=== PATIENT | female | born 1955 | race Caucasian/White ===

== ENCOUNTER 2017-09-25 15:26 | Inpatient (IN) ==
--- NOTE | 2017-09-25 17:35 | Emergency Department Note ---
Disposition Clinical Impression: Effusion, right knee Fever Qualifiers: Fever type: unspecified Qualified Code(s): R50.9 - Fever, unspecified Disposition: Still a Patient Condition: Undetermined Referrals: Camilla Ren MD [Primary Care Provider] - Forms: ED Satisfaction Letter Extremity Problem HPI - General Chief complaint: ED Extremity Injury, Lower Stated complaint: R knee infection Time Seen by Provider: 09/25/17 17:09 Source: patient Mode of arrival: private vehicle Limitations: no limitations Nursing Notes Reviewed: Yes Vital Signs Reviewed: Yes - History of Present Illness Pt Subjective Complaint: joint swelling, joint paint Onset (ago): day(s) (since this morning) Consistency: constant Injury Location: right Pain Scale: 9 Quality: aching, crushing, sharp Radiation: none Improves with: immobilization Worsens with: range of motion, weight bearing, walking, palpation Associated symptoms: Reports: fever, change in appearance, swelling, redness ( "Earlier today, redness is gone now") Context: other (TKR 2012) - Related Data Allergies Allergy/AdvReac Type Severity Reaction Status Date / Time bacitracin Allergy Blister Verified 09/25/17 16:17 [From Neosporin ([id number])] Neomycin Allergy Blister Verified 09/25/17 16:17 [From Neosporin ([id number])] polymyxin B Allergy Blister Verified 09/25/17 16:17 [From Neosporin ([id number])] All systems ED: reviewed and negative except as stated. Review of Systems: As Per HPI Constitutional: Reports: as per HPI, fever (102, just prior to arrival), chills. Denies: weakness, weight change, night sweats Eyes: Denies: eye pain, eye discharge ENT ED: Reports: congestion ("Always have some sinus congestion"). Denies: ear pain, throat pain, dysphagia Cardiovascular: Denies: chest pain Respiratory: Denies: cough, dyspnea, wheezes, sputum production Gastrointestinal: Reports: nausea. Denies: abdominal pain, vomiting, diarrhea, constipation Genitourinary: Denies: urgency, dysuria, frequency, hematuria, discharge Musculoskeletal: Reports: back pain ("A little yesterday, better after sleeping on the floor last night"), joint swelling (Right knee), arthralgia (Right knee) . Denies: neck pain Integumentary: Denies: rash, lesions Neurological: Reports: headache (Began this afternoon, frontal, radiating to the top of the head. Gradual onset. Nothing makes it better or worse. Different from previous headaches.). Denies: weakness, numbness, paresthesias, confusion, vertigo Hematological/Lymphatic: Denies: easy bleeding, easy bruising, lymphadenopathy Allergic/Immunologic: Denies: facial swelling, itchy eyes Past Medical History - Past Medical History Attestation: Yes The following information was validated with the patient. Source: patient Medical history: Reports: arthritis, hypertension Surgical history: Reports: knee replacement (Right) Psychiatric history: Reports: no psych history - Social History Smoking Status: Never smoker Smokeless Tobacco Status: No Alcohol use: Reports: none Drug use: Reports: none Physical Exam - General Limitations: no limitations General appearance: alert, in no apparent distress - Head Head exam: atraumatic, normocephalic, normal inspection - Eye Eye exam: Present: normal appearance, PERRL. Absent: scleral icterus, conjunctival injection, periorbital swelling, periorbital tenderness - ENT ENT exam: mucous membranes moist - Neck Neck exam: Present: normal inspection, full ROM, trachea midline. Absent: tenderness, meningismus, lymphadenopathy - Chest Chest inspection: Present: normal inspection - Respiratory Respiratory exam: Present: normal lung sounds bilaterally. Absent: respiratory distress, wheezes, stridor, accessory muscle use, prolonged expiratory phase - Cardiovascular Cardiovascular exam: Present: regular rate, normal rhythm, normal heart sounds - Extremities Exam Extremities exam: Present: full ROM, tenderness, normal capillary refill, joint swelling. Absent: pedal edema, calf tenderness - Expanded Lower Extremity Exam Hip/Pelvis exam: Present: normal inspection, full ROM Upper leg exam: Present: normal inspection Knee exam: Present: full ROM, tenderness (Right anterior), swelling (Mild, right anterior), knee extension intact. Absent: abrasion, ecchymosis, deformity , crepitus, dislocation, erythema Lower leg exam: Present: normal inspection. Absent: tenderness, swelling, erythema, Homans' sign Ankle exam: Present: normal inspection, full ROM. Absent: tenderness, swelling Foot/toe exam: Present: normal inspection, full ROM. Absent: tenderness, swelling Neurovascular/Tendon exam: Present: normal capillary refill, normal fine/light touch. Absent: pulse deficit, motor deficit, sensory deficit, tendon deficit, extremity cold to touch, pallor, foot drop, significant pain with passive ROM of distal joint Gait: observed and limited by pain, antalgic - Back Exam Back exam: Present: normal inspection, full ROM. Absent: CVA tenderness (R), CVA tenderness (L) - Neurological Exam Neurological exam: Present: alert, oriented X3, CN II-XII intact, normal gait - Psychiatric Psychiatric exam: Present: normal affect, normal mood - Skin Skin exam: Present: warm, dry, intact, normal color Course Course Narrative: Impression presents from home for evaluation of right knee pain and swelling. She woke up with the pain and describes it as starting suddenly before she got up. She noticed swelling and some redness. The redness is gone now. She also has had a fever and a headache which began this afternoon. The headache was gradual in onset, but is different than previous headaches. She is concerned that she may have an infection of some type in her knee. She had a total knee replacement 2012 and has had little to no complication with it since then. Her had an unfortunate experience with an infection in his knee joint, and this is what has caused her concerns about her knee. On exam, she has a low- grade fever and is tachycardic. She reports that her fever was higher before she left her house. She took Tylenol at home. I see no obvious source of infection on initial examination. She has full range of motion of her knee. It is mildly edematous, mildly tender and warm. However, there is no erythema and she does not appear to be in any more discomfort with range of motion of the knee, than at rest. X-ray and labs have been ordered along with Motrin. She is in the fast-track area which is not amenable to IV fluids. As it is shift change, care of this patient is being transferred to the oncoming provider, Kobi Moulton CNP, after discussion of the case. Vital Signs Temperature 99.8 F H 09/25/17 16:08 Pulse Rate 90 09/25/17 16:08 Respiratory Rate 16 09/25/17 16:08 Blood Pressure 132/75 09/25/17 16:08 O2 Sat by Pulse Oximetry 98 09/25/17 16:08 Temperature 99.8 F H 09/25/17 16:08 Pulse Rate 90 09/25/17 16:08 Respiratory Rate 16 09/25/17 16:08 Blood Pressure 132/75 09/25/17 16:08 O2 Sat by Pulse Oximetry 98 09/25/17 16:08 Oxygen Delivery Oxygen Delivery Room Air
[2017-09-25] MEDS ORDERED: Ibuprofen 600 MG TABLET PO ONE (17:37)
[2017-09-25 18:07] LABS: Basophils % 0.2 %; Monocytes % 8.1 %
[2017-09-25 18:08] LABS: Basophils # 0.1 K/mcL (0.0-0.2); Hemoglobin 12.9 g/dL (11.5-15.4); Immature Granulocytes % 1.1 % (0-4); Lymphocytes # 1.4 K/mcL (0.6-4.6); Lymphocytes % 4.7 %; Mean Corpuscular HGB Conc 32.3 g/dL (31.6-35.5); Mean Corpuscular Volume 77.7 fL (83.0-100.0); Mean Platelet Volume 10.6 fL (9.4-12.4); Monocytes # 2.4 K/mcL (0.0-1.3); Neutrophils # 25.1 K/mcL (1.6-8.9); Platelet Count 313 K/mcL (140-400); Red Blood Count 5.15 M/mcL (3.82-4.97); Red Cell Distribution Width 15.9 % (11.5-14.5); Segmented Neutrophils % 85.9 %
[2017-09-25 18:27] LABS: BUN/Creatinine Ratio 21 (6-26); Blood Urea Nitrogen 15 mg/dL (8-23); Calcium 9.3 mg/dL (8.6-10.3); Carbon Dioxide 30 mEq/L (23-29); Chloride 97 mEq/L (98-107); Glucose 114 mg/dL (70-105); Osmolality,Calculated 284 (280-300); Potassium 3.2 mEq/L (3.5-5.1); Sodium 136 mEq/L (136-145); eGFR For African Americans > 60 (> 60); eGFR For Non-African Americans > 60 (> 60)
[2017-09-25 18:30] LABS: Large Platelets Present (Not Present); Reactive Lymphocytes Present (Not Present)
[2017-09-25 18:40] LABS: Bilirubin,Urine Negative (Negative); Blood,Urine Negative (Negative); Clarity,Urine Clear (Clear); Color,Urine Yellow (Yellow); Glucose,Urine (UA) Normal (Normal); Ketones,Urine Negative (Negative); Leukocyte Esterase,Urine Negative (Negative); Nitrite,Urine Negative (Negative); PH,Urine 6.5 pH Units (5.0-8.0); Protein,Urine Negative (Neg-Trace); Specific Gravity,Urine 1.017 (1.010-1.025); Urobilinogen,Urine Normal (Normal)
[2017-09-25] MEDS ORDERED: *HR* HYDROcodone/Acet 5/325 mg TABLET PO ONE (19:15)
[2017-09-25] MEDS ORDERED: Lidocaine 1% 20 ML MDV INFILT ONE (19:24)
--- NOTE | 2017-09-25 19:44 | Emergency Department Note ---
Disposition Clinical Impression: Effusion, right knee Fever Qualifiers: Fever type: unspecified Qualified Code(s): R50.9 - Fever, unspecified Disposition: Admitted As Inpatient Condition: Fair Referrals: Camilla Ren MD [Primary Care Provider] - Forms: ED Satisfaction Letter Time of Disposition: 19:45 Extremity Problem HPI - General Chief complaint: ED Extremity Injury, Lower Stated complaint: R knee infection Time Seen by Provider: 09/25/17 17:09 Source: patient Mode of arrival: private vehicle Limitations: no limitations - History of Present Illness Pt Subjective Complaint: joint swelling, joint paint Consistency: constant Injury Location: right Pain Scale: 9 Quality: aching, crushing, sharp Improves with: immobilization Worsens with: range of motion, weight bearing, walking, palpation Associated symptoms: Reports: fever, change in appearance, swelling, redness ( "Earlier today, redness is gone now") - Related Data Allergies Allergy/AdvReac Type Severity Reaction Status Date / Time bacitracin Allergy Blister Verified 09/25/17 16:17 [From Neosporin ([id number])] Neomycin Allergy Blister Verified 09/25/17 16:17 [From Neosporin ([id number])] polymyxin B Allergy Blister Verified 09/25/17 16:17 [From Neosporin ([id number])] Constitutional: Reports: as per HPI, fever (102, just prior to arrival), chills. Denies: weakness, weight change, night sweats Eyes: Denies: eye pain, eye discharge ENT ED: Reports: congestion ("Always have some sinus congestion"). Denies: ear pain, throat pain, dysphagia Cardiovascular: Denies: chest pain Respiratory: Denies: cough, dyspnea, wheezes, sputum production Gastrointestinal: Reports: nausea. Denies: abdominal pain, vomiting, diarrhea, constipation Genitourinary: Denies: urgency, dysuria, frequency, hematuria, discharge Musculoskeletal: Reports: back pain ("A little yesterday, better after sleeping on the floor last night"), joint swelling (Right knee), arthralgia (Right knee) . Denies: neck pain Integumentary: Denies: rash, lesions Neurological: Reports: headache (Began this afternoon, frontal, radiating to the top of the head. Gradual onset. Nothing makes it better or worse. Different from previous headaches.). Denies: weakness, numbness, paresthesias, confusion, vertigo Hematological/Lymphatic: Denies: easy bleeding, easy bruising, lymphadenopathy Allergic/Immunologic: Denies: facial swelling, itchy eyes Past Medical History - Past Medical History Medical history: Reports: arthritis, hypertension Surgical history: Reports: knee replacement (Right) Psychiatric history: Reports: no psych history - Social History Smoking Status: Never smoker Smokeless Tobacco Status: No Alcohol use: Reports: none Drug use: Reports: none Physical Exam - General Limitations: no limitations General appearance: alert, in no apparent distress Course Course Narrative: 1800: I have assumed care of this patient from Sybil Cr PA-C due to mid- level shift change. Please see Sybil's documentation for care performed prior to my arrival. Briefly, this is alert and oriented nontoxic-appearing 61-year- old female who presents for evaluation of nontraumatic right knee pain and swelling. The patient states she awoke this morning to a extremely painful, swollen, and red knee. She is concerned because she had a total right knee replacement performed by Dr. Kelly at [facility] in 2011. She also complains of subjective fevers and a headache that began at the same time of her right knee pain. She does complain of mild nausea but denies any vomiting. She denies any neck pain or stiffness or photophobia. I have explained to the patient that I believe that the source of her headache is more than likely due to the infectious process in her right knee, as the right knee is extremely warm to the touch and is noticeably more swollen than the left. She states that the headache is different than previous headaches however does not describe as a worst headache of her life. I have offered a lumbar puncture, although I do not believe it would reveal any other infectious process. The patient has declined my offer. 191: I spoke with Dr. Stratton, orthopedist excellence consultant. I discussed this patient's case, presentation, laboratory and x-ray results, and complaints. I have explained to him the patient's concern for a septic joint due to her prosthesis. Dr. Stratton states that since there is no overlying cellulitis, that he recommends we perform a needle aspiration of the right knee and sent for Gram stain and culture prior to beginning IV vancomycin. He states that the patient should be admitted to the hospitalist service and he will consult with the patient tomorrow morning. He requested the patient be kept nothing by mouth after midnight. I have also discussed this plan with Dr. Mace, attending emergency Department physician. He agrees with the aforementioned and outlined plan. 1954: I spoke with Dr. Manjarrez of the hospitalist service. She has accepted the patient for admission for further evaluation of a suspected septic right knee joint. Vital Signs Temperature 99.8 F H 09/25/17 16:08 Pulse Rate 90 09/25/17 16:08 Respiratory Rate 16 09/25/17 16:08 Blood Pressure 132/75 09/25/17 16:08 O2 Sat by Pulse Oximetry 98 09/25/17 16:08 Temperature 99.8 F H 09/25/17 16:08 Pulse Rate 90 09/25/17 16:08 Respiratory Rate 16 09/25/17 16:08 Blood Pressure 132/75 09/25/17 16:08 O2 Sat by Pulse Oximetry 98 09/25/17 16:08 Oxygen Delivery Oxygen Delivery Room Air Procedures - Joint Aspiration/Injection Joint Aspiration/Injection 1 Consent Obtained: verbal consent Time Out Performed: Yes Side of body: right Joint Aspirated: knee Ultrasound Guidance: No Skin Prep: Povidone-Iodine1% Local Anesthetic: lidocaine 1% Amount of anesthesia used (mL): 3 Needle Size Used: 18G Fluid Obtained: turbid Total Fluid Obtained (mls): 4 Patient Tolerated Procedure: well Complications: none Extremity Problem, Nontraumati - Medical Records Medical records reviewed: Yes I reviewed the patient's medical records. - Lab Data Lab results reviewed: Yes I reviewed the patient's lab results. Lab results narrative: Lab Results 09/25/17 09/25/17 09/25/17 Range/Units 17:56 17:56 17:56 WBC 29.2 H (4.3-11.1) K/mcL RBC 5.15 H (3.82-4.97) M/mcL Hgb 12.9 (11.5-15.4) g/dL Hct 40.0 (35.3-44.9) % MCV 77.7 L (83.0-100.0) fL MCH 25.0 L (28.0-33.3) pg MCHC 32.3 (31.6-35.5) g/dL RDW 15.9 H (11.5-14.5) % Plt Count 313 (140-400) K/mcL MPV 10.6 (9.4-12.4) fL Immature Gran % 1.1 (0-4) % Seg Neutrophils % 85.9 % Lymphocytes % 4.7 % Monocytes % 8.1 % Eosinophils % 0.0 % Basophils % 0.2 % Neutrophils # 25.1 H (1.6-8.9) K/mcL Lymphocytes # 1.4 (0.6-4.6) K/mcL Monocytes # 2.4 H (0.0-1.3) K/mcL Eosinophils # 0.0 (0.0-0.6) K/mcL Basophils # 0.1 (0.0-0.2) K/mcL Reactive Lymphocytes Present A (Not Present) Large Platelets Present A (Not Present) ESR 91 H (0-15) mm/hr Sodium 136 (136-145) mEq/L Potassium 3.2 L (3.5-5.1) mEq/L Chloride 97 L (98-107) mEq/L Carbon Dioxide 30 H (23-29) mEq/L BUN 15 (8-23) mg/dL Creatinine 0.71 (0.60-1.20) mg/dL Est GFR ( Amer) > 60 (> 60) Est GFR (Non-Af Amer) > 60 (> 60) BUN/Creatinine Ratio 21 (6-26) Glucose 114 H (70-105) mg/dL Calculated Osmolality 284 (280-300) Lactic Acid (0.5-2.2) mmol/L Calcium 9.3 (8.6-10.3) mg/dL Urine Color (Yellow) Urine Clarity (Clear) Urine pH (5.0-8.0) pH Units Ur Specific [place] (1.010-1.025) Urine Protein (Neg-Trace) mg/dL Urine Glucose (UA) (Normal) mg/dL Urine Ketones (Negative) mg/dL Urine Blood (Negative) Urine Nitrite (Negative) Urine Bilirubin (Negative) Urine Urobilinogen (Normal) mg/dL Ur Leukocyte Esterase (Negative) Ur Culture Indicated? (NO) 09/25/17 09/25/17 Range/Units 17:56 18:20 WBC (4.3-11.1) K/mcL RBC (3.82-4.97) M/mcL Hgb (11.5-15.4) g/dL Hct (35.3-44.9) % MCV (83.0-100.0) fL MCH (28.0-33.3) pg MCHC (31.6-35.5) g/dL RDW (11.5-14.5) % Plt Count (140-400) K/mcL MPV (9.4-12.4) fL Immature Gran % (0-4) % Seg Neutrophils % % Lymphocytes % % Monocytes % % Eosinophils % % Basophils % % Neutrophils # (1.6-8.9) K/mcL Lymphocytes # (0.6-4.6) K/mcL Monocytes # (0.0-1.3) K/mcL Eosinophils # (0.0-0.6) K/mcL Basophils # (0.0-0.2) K/mcL Reactive Lymphocytes (Not Present) Large Platelets (Not Present) ESR (0-15) mm/hr Sodium (136-145) mEq/L Potassium (3.5-5.1) mEq/L Chloride (98-107) mEq/L Carbon Dioxide (23-29) mEq/L BUN (8-23) mg/dL Creatinine (0.60-1.20) mg/dL Est GFR ( Amer) (> 60) Est GFR (Non-Af Amer) (> 60) BUN/Creatinine Ratio (6-26) Glucose (70-105) mg/dL Calculated Osmolality (280-300) Lactic Acid 2.2 (0.5-2.2) mmol/L Calcium (8.6-10.3) mg/dL Urine Color Yellow (Yellow) Urine Clarity Clear (Clear) Urine pH 6.5 (5.0-8.0) pH Units Ur Specific [place] 1.017 (1.010-1.025) Urine Protein Negative (Neg-Trace) mg/dL Urine Glucose (UA) Normal (Normal) mg/dL Urine Ketones Negative (Negative) mg/dL Urine Blood Negative (Negative) Urine Nitrite Negative (Negative) Urine Bilirubin Negative (Negative) Urine Urobilinogen Normal (Normal) mg/dL Ur Leukocyte Esterase Negative (Negative) Ur Culture Indicated? NO (NO) Result diagrams: 09/25/17 17:56 09/25/17 17:56 Lab Results 09/25/17 09/25/17 09/25/17 Range/Units 17:56 17:56 17:56 WBC 29.2 H (4.3-11.1) K/mcL RBC 5.15 H (3.82-4.97) M/mcL Hgb 12.9 (11.5-15.4) g/dL Hct 40.0 (35.3-44.9) % MCV 77.7 L (83.0-100.0) fL MCH 25.0 L (28.0-33.3) pg MCHC 32.3 (31.6-35.5) g/dL RDW 15.9 H (11.5-14.5) % Plt Count 313 (140-400) K/mcL MPV 10.6 (9.4-12.4) fL Immature Gran % 1.1 (0-4) % Seg Neutrophils % 85.9 % Lymphocytes % 4.7 % Monocytes % 8.1 % Eosinophils % 0.0 % Basophils % 0.2 % Neutrophils # 25.1 H (1.6-8.9) K/mcL Lymphocytes # 1.4 (0.6-4.6) K/mcL Monocytes # 2.4 H (0.0-1.3) K/mcL Eosinophils # 0.0 (0.0-0.6) K/mcL Basophils # 0.1 (0.0-0.2) K/mcL Reactive Lymphocytes Present A (Not Present) Large Platelets Present A (Not Present) ESR 91 H (0-15) mm/hr Sodium 136 (136-145) mEq/L Potassium 3.2 L (3.5-5.1) mEq/L Chloride 97 L (98-107) mEq/L Carbon Dioxide 30 H (23-29) mEq/L BUN 15 (8-23) mg/dL Creatinine 0.71 (0.60-1.20) mg/dL Est GFR ( Amer) > 60 (> 60) Est GFR (Non-Af Amer) > 60 (> 60) BUN/Creatinine Ratio 21 (6-26) Glucose 114 H (70-105) mg/dL Calculated Osmolality 284 (280-300) Lactic Acid (0.5-2.2) mmol/L Calcium 9.3 (8.6-10.3) mg/dL Urine Color (Yellow) Urine Clarity (Clear) Urine pH (5.0-8.0) pH Units Ur Specific [place] (1.010-1.025) Urine Protein (Neg-Trace) mg/dL Urine Glucose (UA) (Normal) mg/dL Urine Ketones (Negative) mg/dL Urine Blood (Negative) Urine Nitrite (Negative) Urine Bilirubin (Negative) Urine Urobilinogen (Normal) mg/dL Ur Leukocyte Esterase (Negative) Ur Culture Indicated? (NO) 09/25/17 09/25/17 Range/Units 17:56 18:20 WBC (4.3-11.1) K/mcL RBC (3.82-4.97) M/mcL Hgb (11.5-15.4) g/dL Hct (35.3-44.9) % MCV (83.0-100.0) fL MCH (28.0-33.3) pg MCHC (31.6-35.5) g/dL RDW (11.5-14.5) % Plt Count (140-400) K/mcL MPV (9.4-12.4) fL Immature Gran % (0-4) % Seg Neutrophils % % Lymphocytes % % Monocytes % % Eosinophils % % Basophils % % Neutrophils # (1.6-8.9) K/mcL Lymphocytes # (0.6-4.6) K/mcL Monocytes # (0.0-1.3) K/mcL Eosinophils # (0.0-0.6) K/mcL Basophils # (0.0-0.2) K/mcL Reactive Lymphocytes (Not Present) Large Platelets (Not Present) ESR (0-15) mm/hr Sodium (136-145) mEq/L Potassium (3.5-5.1) mEq/L Chloride (98-107) mEq/L Carbon Dioxide (23-29) mEq/L BUN (8-23) mg/dL Creatinine (0.60-1.20) mg/dL Est GFR ( Amer) (> 60) Est GFR (Non-Af Amer) (> 60) BUN/Creatinine Ratio (6-26) Glucose (70-105) mg/dL Calculated Osmolality (280-300) Lactic Acid 2.2 (0.5-2.2) mmol/L Calcium (8.6-10.3) mg/dL Urine Color Yellow (Yellow) Urine Clarity Clear (Clear) Urine pH 6.5 (5.0-8.0) pH Units Ur Specific [place] 1.017 (1.010-1.025) Urine Protein Negative (Neg-Trace) mg/dL Urine Glucose (UA) Normal (Normal) mg/dL Urine Ketones Negative (Negative) mg/dL Urine Blood Negative (Negative) Urine Nitrite Negative (Negative) Urine Bilirubin Negative (Negative) Urine Urobilinogen Normal (Normal) mg/dL Ur Leukocyte Esterase Negative (Negative) Ur Culture Indicated? NO (NO) - Radiology Data Radiology results reviewed: Yes I reviewed the patient's radiology results. Knee X-Ray 09/25/17 16:18 IMPRESSION: No acute bony abnormalities. Prior right knee arthroplasty. No evidence for hardware complication. Ossifications in the soft tissues posteromedially are felt most likely to reflect some loose bodies within a potential Bowden's cyst. There may be a small knee joint effusion. D/ / 09/25/2017 16:47:38 Syed Haines MD / yousuf Interpreting Provider: Syed Haines MD Attestation Statement - Attestation Attestation: For this encounter, I have reviewed the ETL APPLICATION DEVELOPER or PA documentation, treatment plan, and medical decision making; and I have had face to face time with this patient. 61-year-old who comes in complaining of swelling and pain in the right leg. She states that it was read earlier although on evaluation here it's not as red. A lot of tenderness with palpation to the lateral joint line and medial anterior aspect of the knee. Her white count is 29.2 thousand, sedimentation rate 91. X-ray is unremarkable. The knee was tapped by the PA please see his note for specifics. The fluid was cloudy. Consultation obtained with orthopedics when admit IV antibiotics and further evaluation per Ortho.
[2017-09-25] MEDS ORDERED: Vancomycin 1,250 MG in D5% in Water 250 ML IVPB ONE (20:30)
[2017-09-25] MEDS: Vancomycin 1,250 MG in D5% in Water 250 ML IVPB SCH (21:34)
[2017-09-25] MEDS ORDERED: Ondansetron 4 MG/2 ML VIAL IVP PRN (21:35)
[2017-09-25] MEDS ORDERED: Naloxone 0.4 MG/ML INJ IVP PRN (21:35)
--- NOTE | 2017-09-25 21:42 | Internal Med History&Physical ---
Date of Encounter: 09/25/17 Time of Encounter: 21:39 Assessment and Plan (1) Effusion, right knee Current visit: Yes Status: Acute ED d/w Dr Stratton who will assist Pending joint fluid analysis. Given appearance, concerning for infection (less probable to be related to her RA) IV vanco IVF (2) Leukocytosis Current visit: Yes Status: Acute likely reactive to possible infection from joint SIRS but no sepsis Qualifiers: Leukocytosis type: other Qualified Code(s): D72.828 - Other elevated white blood cell count (3) Rheumatoid arthritis Current visit: Yes Status: Acute appears stable on humira now on percs Qualifiers: Qualified Code(s): M06.9 - Rheumatoid arthritis, unspecified Internal Medicine - H&P: HPI Chief complaint: Right knee swelling History of present illness: Ms. Calabrese is a 61 year old female with hx of RA on biologics for 14 years or so , prosthetic right knee who presents with acute right knee pain/swelling with cloudy, blood streaked knee tap concerning for septic joint. She has RA and is on biologics for 14 years and has been doing well. She is under the care of Dr Burroughs at [facility]. She also had right knee replacement in [address] Kelly in [facility] for arthritis of knee. She presents today with acute onset right knee swelling since this morning that is associated with pain on weight bearing. She had been fine last night. Symptoms came on suddenly. Associated with fever 102.4 in the afternoon. Denies any prior trauma. XR/XR knee 3V RT IMPRESSION: No acute bony abnormalities. Prior right knee arthroplasty. No evidence for hardware complication. Ossifications in the soft tissues posteromedially are felt most likely to reflect some loose bodies within a potential Bowden's cyst. There may be a small knee joint effusion. Past Med Surg Social Fam HX - Past Medical History Medical history: arthritis, hypertension Psychiatric history: no psych history - Past Surgical History Surgical History: knee replacement (Right) - Social History Smoking Status: Never smoker Smokeless Tobacco Status: No Alcohol use: none Drug use: none Internal Medicine - H&P: Meds Acebutolol HCl 200 mg PO DAILY 09/25/17 [History] Adalimumab [Humira] 40 mg SQ Q2W 09/25/17 [History] Duloxetine HCl [Cymbalta] 60 mg PO DAILY 09/25/17 [History] Esomeprazole Magnesium [Nexium] 40 mg PO BID 09/25/17 [History] [place]-3 Acid Ethyl Esters [Lovaza] 2 gm PO DAILY 09/25/17 [History] Oxycodone HCl/Acetaminophen [Percocet 5-325 mg Tablet] 1 each PO BID PRN [History] Potassium Chloride [K-Tab ER] 10 meq PO DAILY 09/25/17 [History] hydroCHLOROthiazide [Hydrochlorothiazide] 25 mg PO DAILY 09/25/17 [History] 3 Allergy/AdvReac Type Severity Reaction Status Date / Time bacitracin Allergy Blister Verified 09/25/17 16:17 [From Neosporin ([id number])] Neomycin Allergy Blister Verified 09/25/17 16:17 [From Neosporin ([id number])] polymyxin B Allergy Blister Verified 09/25/17 16:17 [From Neosporin ([id number])] All Systems PM: A 10-system review of systems was performed and is negative for pertinent findings except as documented above in the HPI. Review of systems: ROS 14 point review of systems reviewed as best as possible given presentation. Pertinent positive or negative as per HPI or otherwise reviewed as negative - Constitutional Vitals: Temp Pulse Resp BP Pulse Ox 99.8 F H 87 16 105/68 96 09/25/17 16:08 09/25/17 20:53 09/25/17 20:53 09/25/17 20:53 09/25/17 20:53 Exam: General - AAO x 3 Psych - Appropriate affect/speech. No agitation Eyes - VICTORIANO. Eye lids intact. No scleral icterus Heart - Sinus. RRR. S1 and S2 present. No added HS/murmurs appreciated. No elevated JVD appreciated. Lung - Adequate air entry b/l, No crackles/wheezes appreciated GI - Soft, non-tender. No hepatosplenomegaly/ascites. BS+ - No CVA/suprapubic tenderness or palpable bladder distension Skin - Intact. No rash/petechiae/ecchymosis. Warm extremities MSK - Right knee swelling with puncture wound from tap. Swelling. Decreased ROM. pain on weight bearing Internal Med - H&P Results - Labs CBC & Chem 7: 12/29/17 17:56 09/25/17 17:56
[2017-09-25] MEDS ORDERED: Vancomycin 0 MG in D5% in Water 250 ML IVPB SCH (22:00)
[2017-09-25] MEDS: *HR* OxyCODONE/APAP 5/325 TABLET PO PRN (22:21)
[2017-09-25] MEDS: 0.9 % Sodium Chloride 1,000 ML IVC SCH (23:27)
[2017-09-26] MEDS ORDERED: 0.9 % Sodium Chloride 1,000 ML ONE (00:26)
[2017-09-26] MEDS: *HR* Morphine 2 MG/ML SYRINGE IVP PRN ×3 (00:34→21:06)
[2017-09-26] MEDS: 0.9 % Sodium Chloride 1,000 ML IVC SCH (00:38)
[2017-09-26] MEDS: Ringers Solution, Lactated 1,000 ML IVC SCH ×2 (01:38→13:49)
[2017-09-26] MEDS: *HR* OxyCODONE/APAP 5/325 TABLET PO PRN ×4 (04:22→23:28)
[2017-09-26] MEDS: *HR* Enoxaparin 40 MG/0.4 ML SYRINGE SQ SCH (05:52)
[2017-09-26 06:08] LABS: Basophils # 0.1 K/mcL (0.0-0.2); Basophils % 0.3 %; Eosinophils # 0.1 K/mcL (0.0-0.6); Eosinophils % 0.3 %; Hematocrit 33.7 % (35.3-44.9); Hemoglobin 10.4 g/dL (11.5-15.4); Immature Granulocytes % 0.7 % (0-4); Lymphocytes # 2.9 K/mcL (0.6-4.6); Lymphocytes % 16.9 %; Mean Corpuscular HGB Conc 30.9 g/dL (31.6-35.5); Mean Corpuscular Hemoglobin 24.4 pg (28.0-33.3); Mean Corpuscular Volume 78.9 fL (83.0-100.0); Mean Platelet Volume 10.7 fL (9.4-12.4); Monocytes # 2.2 K/mcL (0.0-1.3); Monocytes % 12.8 %; Platelet Count 270 K/mcL (140-400); Red Blood Count 4.27 M/mcL (3.82-4.97); Red Cell Distribution Width 16.2 % (11.5-14.5)
[2017-09-26 06:25] LABS: BUN/Creatinine Ratio 23 (6-26); Blood Urea Nitrogen 19 mg/dL (8-23); Calcium 8.3 mg/dL (8.6-10.3); Carbon Dioxide 32 mEq/L (23-29); Chloride 101 mEq/L (98-107); Glucose 117 mg/dL (70-105); Magnesium 1.6 mg/dL (1.6-2.6); Osmolality,Calculated 285 (280-300); Sodium 136 mEq/L (136-145); eGFR For African Americans > 60 (> 60); eGFR For Non-African Americans > 60 (> 60)
[2017-09-26 07:34] LABS: C-Reactive Protein 159 mg/L (Less than 10)
[2017-09-26] MEDS: hydroCHLOROthiazide 25 MG TABLET PO SCH ×2 (07:39→13:54)
--- NOTE | 2017-09-26 08:04 | Orthopedic Consult Note ---
Date of Encounter: 09/26/17 Time of Encounter: 08:00 History of Present Illness HPI: Ms. Calabrese is a 61 year old female s/p right tkr in [place] in 2014. Patient reports one day history of pain and swelling in the right knee. Patient denies any fevers, chills or issues prior to the onset of pain. Patient has a history of Rheumatoid arthritis. Patient had a knee aspiration and in the emergency room. Gram stain was positive for white cells but negative for bacteria. Physical exam Right knee Some swelling no erythema Motion is limited with some discomfort. nvi Patient with an ESR 91 a CRP of 159 white blood cell count is trending down Patient is on IV antibiotics. Differential diagnosis is infected right total knee versus rheumatoid flare. Cultures will be written at 1:00. Patient would like to wait for cultures to completely resolved to determine if infection or not. If infection patient undergo 1 stage revision. If no infection will continue to treat empirically. Past Med Surg Social Fam HX - Past Medical History Medical history: arthritis, hypertension, RA Psychiatric history: no psych history - Past Surgical History Surgical History: knee replacement, orthopedic, other - Social History Smoking Status: Never smoker Smokeless Tobacco Status: No Alcohol use: none Drug use: none - Family History Mother Living Status: Cause of : old age Father Living Status: Cause of : cancer Medications and Allergies Acebutolol HCl 200 mg PO DAILY 09/25/17 [History] Adalimumab [Humira] 40 mg SQ Q2W 09/25/17 [History] Duloxetine HCl [Cymbalta] 60 mg PO DAILY 09/25/17 [History] Esomeprazole Magnesium [Nexium] 40 mg PO BID 09/25/17 [History] [place]-3 Acid Ethyl Esters [Lovaza] 2 gm PO DAILY 09/25/17 [History] Oxycodone HCl/Acetaminophen [Percocet 5-325 mg Tablet] 1 each PO BID PRN [History] Potassium Chloride [K-Tab ER] 10 meq PO DAILY 09/25/17 [History] hydroCHLOROthiazide [Hydrochlorothiazide] 25 mg PO DAILY 09/25/17 [History] 3 Allergy/AdvReac Type Severity Reaction Status Date / Time bacitracin Allergy Blister Verified 09/25/17 16:17 [From Neosporin ([id number])] Neomycin Allergy Blister Verified 09/25/17 16:17 [From Neosporin ([id number])] polymyxin B Allergy Blister Verified 09/25/17 16:17 [From Neosporin ([id number])] All Systems Reviewed: A 10-system review of systems was performed and is negative for pertinent findings except as documented above in the HPI. Physical Exam - Constitutional Vitals: Temp Pulse Resp BP Pulse Ox 97.8 F 64 18 106/69 98 09/26/17 07:00 09/26/17 07:00 09/26/17 07:00 09/26/17 07:00 09/26/17 07:00 Results - Labs Result Diagrams: 09/26/17 05:56 09/26/17 05:56 Labs: Abnormal lab results WBC 17.4 K/mcL (4.3-11.1) H 09/26/17 05:56 Hgb 10.4 g/dL (11.5-15.4) L D 09/26/17 05:56 Hct 33.7 % (35.3-44.9) L 09/26/17 05:56 MCV 78.9 fL (83.0-100.0) L 09/26/17 05:56 MCH 24.4 pg (28.0-33.3) L 09/26/17 05:56 MCHC 30.9 g/dL (31.6-35.5) L 09/26/17 05:56 RDW 16.2 % (11.5-14.5) H 09/26/17 05:56 Neutrophils # 12.0 K/mcL (1.6-8.9) H 09/26/17 05:56 Monocytes # 2.2 K/mcL (0.0-1.3) H 09/26/17 05:56 Reactive Lymphocytes Present (Not Present) A 09/25/17 17:56 Large Platelets Present (Not Present) A 09/25/17 17:56 ESR 91 mm/hr (0-15) H 09/25/17 17:56 Potassium 3.0 mEq/L (3.5-5.1) L 09/26/17 05:56 Carbon Dioxide 32 mEq/L (23-29) H 09/26/17 05:56 Glucose 117 mg/dL (70-105) H 09/26/17 05:56 Calcium 8.3 mg/dL (8.6-10.3) L 09/26/17 05:56 C-Reactive Protein 159 mg/L (Less than 10) H 09/26/17 05:56 H & H 09/26/17 Range/Units 05:56 Hgb 10.4 L D (11.5-15.4) g/dL Hct 33.7 L (35.3-44.9) % All other labs normal. Consult Discharge Plan - Plan Referrals: Camilla Ren MD [Primary Care Provider] -
[2017-09-26] MEDS: Vancomycin 1,250 MG in D5% in Water 250 ML IVPB SCH ×2 (08:09→20:07)
--- NOTE | 2017-09-26 14:46 | Internal Med Progress Note ---
Date of Encounter: 09/26/17 Time of Encounter: 14:43 - Assessment and plan (1) Septic arthritis Current Visit: Yes Status: Acute Assessment and plan: Initially it was concerning for septic arthritis however her synovial fluid Gram staining showed many WBC, No epithelial cells no bacteria noticed will f/u on cx results mean while cont empirical abx Vanco WBC started trending down Ortho on board Qualifiers: Septic arthritis location: knee Septic arthritis organism: due to unspecified organism Laterality: right Qualified Code(s): M00.9 - Pyogenic arthritis, unspecified (2) Effusion, right knee Current Visit: Yes Status: Acute Assessment and plan: since she has too many WBC in fluid analysis and also has other joint soreness could be her RA flare up too so started her on Prednisone 40mg PO daily (3) Leukocytosis Current Visit: Yes Status: Acute Qualifiers: Leukocytosis type: other Qualified Code(s): D72.828 - Other elevated white blood cell count (4) Rheumatoid arthritis Current Visit: Yes Status: Acute Assessment and plan: on Humir concerned for possible RA flare up started on PO steroids Qualifiers: Qualified Code(s): M06.9 - Rheumatoid arthritis, unspecified - Subjective Interval history: Ms. Calabrese is a 61 year old female with hx of RA on biologics for 14 years or so , prosthetic right knee who presents with acute right knee pain/swelling with cloudy, blood streaked knee tap concerning for septic joint. She has RA and is on biologics for 14 years and has been doing well. She is under the care of Dr Burroughs at [facility]. She had right knee replacement in [address] Kelly in [facility] [place]. She presented our ER y/d with acute onset right knee swelling since morning that is associated with pain on weight bearing. She had been fine last night. Symptoms came on suddenly. Associated with fever 102.4 in the afternoon. Denies any prior trauma. She also mentioned as feeling sore in all her hand joints / feet from last one week. She was admitted in the hospital for Spetic arthritis and started her on empirical abx Vanco. Pt stated she is feeling little better now, still has some swelling and pain in Rt knee. - Constitutional Vitals: Temp Pulse Resp BP Pulse Ox 98 F 69 19 113/72 99 09/26/17 11:04 09/26/17 11:04 09/26/17 11:04 09/26/17 11:04 09/26/17 11:04 General appearance: Present: A&O X 3, no acute distress, answers questions appropriately - Head Head exam: Present: atraumatic, normal inspection - Neck Neck exam general surgery: Present: supple - Respiratory Respiratory exam: Present: CTAB. Absent: accessory muscle use, rales, rhonchi, wheezes - Cardiovascular Cardiovascular exam: Present: RRR, +S1, +S2. Absent: diastolic murmur, gallop, rubs, systolic murmur - GI/Abdominal GI/Abdominal exam: Present: soft. Absent: rebound, rigid, tenderness - Extremities Exam Extremities exam: Present: joint swelling (Rt knee.. with no erythema. Tenderness ++), tenderness (Rt knee). Absent: calf tenderness, pedal edema - Back Exam Back exam: Absent: CVA tenderness (L), CVA tenderness (R) - Psychiatric Psychiatric exam: Present: normal affect, normal mood Internal Medicine: Result - Labs CBC & Chem 7: 09/26/17 05:56 09/26/17 05:56 Labs: Short CBC 09/26/17 Range/Units 05:56 WBC 17.4 H (4.3-11.1) K/mcL Hgb 10.4 L D (11.5-15.4) g/dL Hct 33.7 L (35.3-44.9) % Plt Count 270 (140-400) K/mcL Neutrophils # 12.0 H (1.6-8.9) K/mcL BMP 09/26/17 05:56 Sodium 136 Potassium 3.0 L Chloride 101 Carbon Dioxide 32 H BUN 19 Creatinine 0.81 Glucose 117 H Calcium 8.3 L Consult Discharge Plan - Plan Referrals: Camilla Ren MD [Primary Care Provider] -
[2017-09-26] MEDS: predniSONE 20 MG TABLET PO SCH (16:13)
[2017-09-27] MEDS: *HR* OxyCODONE/APAP 5/325 TABLET PO PRN ×4 (05:35→21:10)
[2017-09-27] MEDS: *HR* Enoxaparin 40 MG/0.4 ML SYRINGE SQ SCH (05:35)
--- NOTE | 2017-09-27 07:38 | Orthopedics Progress Note ---
Date of Encounter: 09/27/17 Time of Encounter: 07:37 Subjective Interval history: Patient seen this morning right knee feeling better. Better motion. Less pain. Discussed with micro lab no growth to date continue nonoperative management Objective Vital signs: Vital Signs Temp Pulse Resp BP Pulse Ox 09/27/17 07:06 97.6 F 73 12 116/75 98 09/27/17 03:41 98.2 F 70 18 110/75 98 09/27/17 00:00 98.1 F 72 18 109/73 99 09/26/17 20:20 98.3 F 69 17 112/72 99 09/26/17 15:55 98.4 F 73 18 113/66 99 09/26/17 11:04 98 F 69 19 113/72 99 09/26/17 08:15 55 115/76 Intake and Output 09/26/17 09/26/17 09/27/17 15:59 23:59 07:59 Intake Total 1250 / 1250 575 / 575 Balance 1250 / 1250 575 / 575 Intake: IV Fluids 1250 / 1250 250 / 250 Lactated Ringers 1,000 ML @ 100 1000 / 1000 mls/hr IVC .Q10H NIKOLAS Rx#: [id number] Vancocin 1,250 MG In Dextrose 5 250 / 250 250 / 250 % 250 ML @ 166.67 mls/hr IVPB Q12H NIKOLAS Rx#:[id number] Oral 325 / 325 Other: # Voids 3 1 Weight 91.5 kg Patient Weight 09/27/17 23:59 Weight 91.5 kg - Labs CBC & BMP: 09/26/17 05:56 09/26/17 05:56 Labs: Abnormal lab results WBC 17.4 K/mcL (4.3-11.1) H 09/26/17 05:56 Hgb 10.4 g/dL (11.5-15.4) L D 09/26/17 05:56 Hct 33.7 % (35.3-44.9) L 09/26/17 05:56 MCV 78.9 fL (83.0-100.0) L 09/26/17 05:56 MCH 24.4 pg (28.0-33.3) L 09/26/17 05:56 MCHC 30.9 g/dL (31.6-35.5) L 09/26/17 05:56 RDW 16.2 % (11.5-14.5) H 09/26/17 05:56 Neutrophils # 12.0 K/mcL (1.6-8.9) H 09/26/17 05:56 Monocytes # 2.2 K/mcL (0.0-1.3) H 09/26/17 05:56 Reactive Lymphocytes Present (Not Present) A 09/25/17 17:56 Large Platelets Present (Not Present) A 09/25/17 17:56 ESR 91 mm/hr (0-15) H 09/25/17 17:56 Potassium 3.0 mEq/L (3.5-5.1) L 09/26/17 05:56 Carbon Dioxide 32 mEq/L (23-29) H 09/26/17 05:56 Glucose 117 mg/dL (70-105) H 09/26/17 05:56 Calcium 8.3 mg/dL (8.6-10.3) L 09/26/17 05:56 C-Reactive Protein 159 mg/L (Less than 10) H 09/26/17 05:56 - VTE Documentation of Mechanical Device: Venous foot pump, device Consult Discharge Plan - Plan Referrals: Camilla Ren MD [Primary Care Provider] -
[2017-09-27 08:28] LABS: Basophils % 0.1 %; Eosinophils % 0.1 %; Hematocrit 35.5 % (35.3-44.9); Hemoglobin 10.8 g/dL (11.5-15.4); Immature Granulocytes % 0.5 % (0-4); Lymphocytes # 1.6 K/mcL (0.6-4.6); Lymphocytes % 10.9 %; Mean Corpuscular HGB Conc 30.4 g/dL (31.6-35.5); Mean Corpuscular Hemoglobin 24.4 pg (28.0-33.3); Mean Corpuscular Volume 80.3 fL (83.0-100.0); Mean Platelet Volume 11.3 fL (9.4-12.4); Monocytes # 1.2 K/mcL (0.0-1.3); Monocytes % 7.9 %; Neutrophils # 11.8 K/mcL (1.6-8.9); Platelet Count 297 K/mcL (140-400); Red Blood Count 4.42 M/mcL (3.82-4.97); Red Cell Distribution Width 16.3 % (11.5-14.5); Segmented Neutrophils % 80.5 %
[2017-09-27 08:40] LABS: BUN/Creatinine Ratio 23 (6-26); Blood Urea Nitrogen 15 mg/dL (8-23); Calcium 9.1 mg/dL (8.6-10.3); Carbon Dioxide 31 mEq/L (23-29); Chloride 105 mEq/L (98-107); Glucose 116 mg/dL (70-105); Magnesium 1.7 mg/dL (1.6-2.6); Osmolality,Calculated 292 (280-300); Potassium 4.1 mEq/L (3.5-5.1); Sodium 140 mEq/L (136-145); eGFR For African Americans > 60 (> 60); eGFR For Non-African Americans > 60 (> 60)
[2017-09-27] MEDS: hydroCHLOROthiazide 25 MG TABLET PO SCH (09:33)
[2017-09-27] MEDS: predniSONE 20 MG TABLET PO SCH ×2 (09:33→17:01)
[2017-09-27] MEDS: Vancomycin 1,250 MG in D5% in Water 250 ML IVPB SCH (09:42)
[2017-09-27] MEDS ORDERED: Aminoglycoside Consult 1 EACH MC ONE (10:14)
--- NOTE | 2017-09-27 16:06 | Internal Med Progress Note ---
Date of Encounter: 09/27/17 Time of Encounter: 16:04 - Assessment and plan (1) Septic arthritis Current Visit: Yes Status: Acute Assessment and plan: Initially it was concerning for septic arthritis however her synovial fluid Gram staining showed many WBC, No epithelial cells no bacteria noticed Fluid cx - no growth in 24hrs Blood cx no growth mean while cont empirical abx Vanco WBC started trending down Ortho on board Qualifiers: Septic arthritis location: knee Septic arthritis organism: due to unspecified organism Laterality: right Qualified Code(s): M00.9 - Pyogenic arthritis, unspecified (2) Effusion, right knee Current Visit: Yes Status: Acute Assessment and plan: since she has too many WBC in fluid analysis and also has other joint soreness could be her RA flare up too Inc her Prednisone to 40mg PO BID (3) Leukocytosis Current Visit: Yes Status: Acute Qualifiers: Leukocytosis type: other Qualified Code(s): D72.828 - Other elevated white blood cell count (4) Rheumatoid arthritis Current Visit: Yes Status: Acute Assessment and plan: on Humir concerned for possible RA flare up started on PO steroids Qualifiers: Qualified Code(s): M06.9 - Rheumatoid arthritis, unspecified - Subjective Interval history: Ms. Calabrese is a 61 year old female with hx of RA on biologics for 14 years or so , prosthetic right knee who presents with acute right knee pain/swelling with cloudy, blood streaked knee tap concerning for septic joint. She has RA and is on biologics for 14 years and has been doing well. She is under the care of Dr Burroguhs at [facility]. She had right knee replacement in [address] Kelly in [facility] [place] for arthritis of knee. She presented our ER y/d with acute onset right knee swelling since morning that is associated with pain on weight bearing. She had been fine last night. Symptoms came on suddenly. Associated with fever 102.4 in the afternoon. Denies any prior trauma. She also mentioned as feeling sore in all her hand joints / feet from last one week. She was admitted in the hospital for Septic arthritis and started her on empirical abx Vanco. Still has some swelling and pain in Rt knee. Over all feels little better now. - Constitutional Vitals: Temp Pulse Resp BP Pulse Ox 98.2 F 60 16 122/71 96 09/27/17 15:12 09/27/17 15:12 09/27/17 15:12 09/27/17 15:12 09/27/17 15:12 General appearance: Present: A&O X 3, no acute distress, answers questions appropriately - Head Head exam: Present: atraumatic, normal inspection - Neck Neck exam general surgery: Present: supple - Respiratory Respiratory exam: Present: decreased breath sounds, wheezes. Absent: respiratory distress, rhonchi - Cardiovascular Cardiovascular exam: Present: RRR, +S1, +S2. Absent: tachycardia - GI/Abdominal GI/Abdominal exam: Present: soft. Absent: rebound, rigid, tenderness - Extremities Exam Extremities exam: Present: tenderness (mild tenderness over Rt Knee). Absent: calf tenderness, pedal edema Additional comments: Limited ROM in Rt Knee still has some tenderness and swelling in Rt Knee - Back Exam Back exam: Absent: CVA tenderness (L), CVA tenderness (R) - Psychiatric Psychiatric exam: Present: normal affect, normal mood Internal Medicine: Result - Labs CBC & Chem 7: 09/27/17 08:05 09/27/17 08:05 Labs: Short CBC 09/27/17 Range/Units 08:05 WBC 14.6 H (4.3-11.1) K/mcL Hgb 10.8 L (11.5-15.4) g/dL Hct 35.5 (35.3-44.9) % Plt Count 297 (140-400) K/mcL Neutrophils # 11.8 H (1.6-8.9) K/mcL BMP 09/27/17 08:05 Sodium 140 Potassium 4.1 Chloride 105 Carbon Dioxide 31 H BUN 15 Creatinine 0.65 Glucose 116 H Calcium 9.1 - VTE Documentation of Mechanical Device: Venous foot pump, device Consult Discharge Plan - Plan Referrals: Camilla Ren MD [Primary Care Provider] -
[2017-09-27] MEDS: Vancomycin 1,500 MG in D5% in Water 250 ML IVPB SCH (20:33)
[2017-09-28] MEDS: *HR* OxyCODONE/APAP 5/325 TABLET PO PRN ×3 (01:11→09:22)
[2017-09-28 03:51] LABS: Basophils % 0.1 %; Hematocrit 33.9 % (35.3-44.9); Hemoglobin 10.6 g/dL (11.5-15.4); Immature Granulocytes % 0.7 % (0-4); Lymphocytes # 1.3 K/mcL (0.6-4.6); Lymphocytes % 9.2 %; Mean Corpuscular HGB Conc 31.3 g/dL (31.6-35.5); Mean Corpuscular Hemoglobin 24.8 pg (28.0-33.3); Mean Corpuscular Volume 79.4 fL (83.0-100.0); Mean Platelet Volume 11.3 fL (9.4-12.4); Monocytes # 0.9 K/mcL (0.0-1.3); Monocytes % 6.3 %; Neutrophils # 11.3 K/mcL (1.6-8.9); Platelet Count 311 K/mcL (140-400); Red Blood Count 4.27 M/mcL (3.82-4.97); Red Cell Distribution Width 16.4 % (11.5-14.5); Segmented Neutrophils % 83.7 %
[2017-09-28] MEDS: *HR* Enoxaparin 40 MG/0.4 ML SYRINGE SQ SCH (05:12)
[2017-09-28 06:47] VITALS: BP 130/74
--- NOTE | 2017-09-28 07:07 | Orthopedics Progress Note ---
Date of Encounter: 09/28/17 Time of Encounter: 07:06 Subjective Interval history: Patient seen this morning right knee feeling better. Better motion. Less pain. cultures negative growth, likely a RA flare, ok to DC home will follow cultures and contact patient if something changes. Objective Vital signs: Vital Signs Temp Pulse Resp BP Pulse Ox 09/28/17 06:45 97.9 F 69 18 130/74 96 09/28/17 04:13 98.1 F 71 17 109/91 97 09/28/17 00:15 98.1 F 70 18 123/69 96 09/27/17 20:30 98.7 F 73 17 123/72 96 09/27/17 15:12 98.2 F 60 16 122/71 96 09/27/17 12:46 98.1 F 64 12 132/74 98 Intake and Output 09/27/17 09/27/17 09/28/17 15:59 23:59 07:59 Intake Total 600 / 600 300 / 300 1100 / 1100 Balance 600 / 600 300 / 300 1100 / 1100 Intake: IV Fluids 250 / 250 Vancocin 1,500 MG In Dextrose 5 250 / 250 % 250 ML @ 166.67 mls/hr IVPB Q12H NIKOLAS Rx#:[id number] Oral 600 / 600 50 / 50 1100 / 1100 Other: Meal Breakfast Percent of Meal Consumed 100% # Voids 1 1 1 - Labs CBC & BMP: 09/28/17 02:58 09/27/17 08:05 Labs: Abnormal lab results WBC 13.5 K/mcL (4.3-11.1) H 09/28/17 02:58 Hgb 10.6 g/dL (11.5-15.4) L 09/28/17 02:58 Hct 33.9 % (35.3-44.9) L 09/28/17 02:58 MCV 79.4 fL (83.0-100.0) L 09/28/17 02:58 MCH 24.8 pg (28.0-33.3) L 09/28/17 02:58 MCHC 31.3 g/dL (31.6-35.5) L 09/28/17 02:58 RDW 16.4 % (11.5-14.5) H 09/28/17 02:58 Neutrophils # 11.3 K/mcL (1.6-8.9) H 09/28/17 02:58 Reactive Lymphocytes Present (Not Present) A 09/25/17 17:56 Large Platelets Present (Not Present) A 09/25/17 17:56 ESR 91 mm/hr (0-15) H 09/25/17 17:56 Carbon Dioxide 31 mEq/L (23-29) H 09/27/17 08:05 Glucose 116 mg/dL (70-105) H 09/27/17 08:05 C-Reactive Protein 159 mg/L (Less than 10) H 09/26/17 05:56 - VTE Documentation of Mechanical Device: Intermittent pneumatic compression device Consult Discharge Plan - Plan Referrals: Camilla Ren MD [Primary Care Provider] -
--- NOTE | 2017-09-28 08:45 | Discharge Summary ---
Date of Encounter: 09/28/17 Time of Encounter: 08:39 - Discharge Diagnosis (1) Septic arthritis Priority: Primary Status: Ruled-out Comments: ruled out Qualifiers: Septic arthritis location: knee Septic arthritis organism: due to unspecified organism Laterality: right Qualified Code(s): M00.9 - Pyogenic arthritis, unspecified (2) Effusion, right knee Priority: Primary Status: Acute (3) Leukocytosis Priority: Primary Status: Acute Qualifiers: Leukocytosis type: other Qualified Code(s): D72.828 - Other elevated white blood cell count (4) Rheumatoid arthritis Priority: Secondary Status: Acute Qualifiers: Qualified Code(s): M06.9 - Rheumatoid arthritis, unspecified - Discharge Medications Prescriptions: predniSONE [PredniSONE] 40 mg PO DAILY #30 tablet Home Medications: Acebutolol HCl 200 mg PO DAILY 09/25/17 [History] Adalimumab [Humira] 40 mg SQ Q2W 09/25/17 [History] Duloxetine HCl [Cymbalta] 60 mg PO DAILY 09/25/17 [History] Esomeprazole Magnesium [Nexium] 40 mg PO BID 09/25/17 [History] Kerby-3 Acid Ethyl Esters [Lovaza] 2 gm PO DAILY 09/25/17 [History] Oxycodone HCl/Acetaminophen [Percocet 5-325 mg Tablet] 1 each PO BID PRN [History] Potassium Chloride [K-Tab ER] 10 meq PO DAILY 09/25/17 [History] hydroCHLOROthiazide [Hydrochlorothiazide] 25 mg PO DAILY 09/25/17 [History] predniSONE [PredniSONE] 40 mg PO DAILY #30 tablet 09/28/17 [Rx] Allergies/Adverse Reactions: 3 Allergy/AdvReac Type Severity Reaction Status Date / Time bacitracin Allergy Blister Verified 09/25/17 16:17 [From Neosporin ([id number])] Neomycin Allergy Blister Verified 09/25/17 16:17 [From Neosporin ([id number])] polymyxin B Allergy Blister Verified 09/25/17 16:17 [From Neosporin ([id number])] Date of admission: 09/25/17 20:13 Primary care physician: Camilla Melton - Patient Status Disposition: Home, Self-Care Condition: Good Overall status at discharge: patient is back to baseline - Discharge Instructions Follow Up With: Camilla Ren MD [Primary Care Provider] - Lam Burroughs MD [Non-Partnered Physician] - Additional Instructions: Please f/u with PCP in one week Please f/u with your Rhematologist in [place] Please continue taking Prednisone 40mg PO daily x 5 days then 30mg PO daily x 5 days then 20mg PO daily x 5 days - Diet and Activity Activity: increase activity as tolerated Diet: low salt diet Hospital course: Ms. Calabrese is a 61 year old female with hx of RA on biologics for 14 years or so , prosthetic right knee who presents with acute right knee pain/swelling with cloudy, blood streaked knee tap concerning for septic joint. She has RA and is on biologics for 14 years and has been doing well. She is under the care of Dr Burroughs at [facility]. She had right knee replacement in [address] Kelly in [facility] at [facility] for arthritis of knee. She presented our ER y/d with acute onset right knee swelling since morning that is associated with pain on weight bearing. Denies any prior trauma. She also mentioned as feeling sore in all her hand joints / feet from last one week. She was admitted in the hospital for in suspect of septic arthritis and started her on empirical abx Vanco. However her synovial fluid gram staining did not show any bacteria other than many WBC. It looks like she does have RA flare up. So started her on high dose PO steroids Prednisone 40mg PO BID. Her synovial fluid cx did not grow any bacteria. So stopped all abx, her WBC trended down to normal. Her Knee swelling and tenderness improved, as well as other hand joints soreness also better. So recommend to continue tapering steroids and f/u with her dining room busser Dr. Burroughs as early as possible. Recommend to take Prednisone 40mg PO daily for another 5 days then cut back to 30mg PO daily x 5 days and f/u with Rheum. - Time Spent with Patient Total time spent providing and/or coordinating discharge services: - Constitutional Vitals: Temp Pulse Resp BP Pulse Ox 97.9 F 69 18 130/74 96 09/28/17 06:45 09/28/17 06:45 09/28/17 06:45 09/28/17 06:45 09/28/17 06:45 General appearance: Present: A&O X 3, no acute distress, answers questions appropriately - Head Head exam: Present: atraumatic, normal inspection - Respiratory Respiratory exam: Present: CTAB. Absent: rales, respiratory distress, rhonchi, wheezes - Cardiovascular Cardiovascular exam: Present: RRR, +S1, +S2. Absent: diastolic murmur, gallop, rubs, systolic murmur - GI/Abdominal GI/Abdominal exam: Present: soft. Absent: rebound, rigid, tenderness - Extremities Exam Extremities exam: Absent: calf tenderness, pedal edema, tenderness Additional comments: Improved swelling and tenderness in Rt knee - Back Exam Back exam: Absent: CVA tenderness (L), CVA tenderness (R) - Psychiatric Psychiatric exam: Present: normal affect, normal mood - VTE Documentation of Mechanical Device: Intermittent pneumatic compression device
[2017-09-28] MEDS: hydroCHLOROthiazide 25 MG TABLET PO SCH (09:21)
[2017-09-28] MEDS: Vancomycin 1,500 MG in D5% in Water 250 ML IVPB SCH (09:22)
[2017-09-28] MEDS: predniSONE 20 MG TABLET PO SCH (10:00)
== END 2017-09-28 10:15 | disposition home or self-care (01) | DRG 566 ==
LOC: EMEROO 15:26 → 3NENU 20:13
PROVIDERS: ADMIT Internal Medicine; ATTEND Student in an Organized Health Care Education/Training Program